=== PATIENT | female | born 1960 | race Caucasian/White ===

== ENCOUNTER 2019-09-01 00:23 | Emergency (ER) | payer BC, OTHER ==
--- NOTE | 2019-09-01 00:37 | EDM.PDOC ---
ED HPI GENERAL MEDICAL PROBLEM - General Stated Complaint: CHEST PAIN Time Seen by Provider: 09/01/19 00:35 Source of Information: Reports: Patient History Limitations: Reports: No Limitations - History of Present Illness INITIAL COMMENTS - FREE TEXT/NARRATIVE: 58 yo female with epigastric pain,radiation to the lower abdomen.Started at 1700 hrs and described as colicky. No bowel movement today. No fever or chest symptoms. Has ah.o Cholecystectomy and ANDRÉS. Otherwise healthy Upper abdomen Pain Score (Numeric/FACES): 0 - Related Data Allergies Allergy/AdvReac Type Severity Reaction Status Date / Time oxycodone [Oxycodone] Allergy Unknown Rash Verified 09/01/19 00:55 Home Meds: Home Meds Escitalopram Oxalate [Lexapro] 10 mg PO DAILY 09/01/19 [History] Losartan/Hydrochlorothiazide [Losartan-HCTZ 100-25 MG] 1 tab DAILY 09/01/19 [History] ED ROS GENERAL - Review of Systems Review Of Systems: Comprehensive ROS is negative, except as noted in HPI. ED EXAM, GI/ABD - Physical Exam Exam: See Below Exam Limited By: No Limitations General Appearance: Alert, WD/WN, Anxious Ears: Normal External Exam Nose: Normal Inspection Throat/Mouth: Normal Inspection Head: Atraumatic Respiratory/Chest: No Respiratory Distress Cardiovascular: Normal Peripheral Pulses GI/Abdominal Exam: Soft, Non-Tender, Distended. No: Guarding, Rigid, Rebound Course - Vital Signs Last Recorded V/S: Last Vital Signs Temp 98.1 F 09/01/19 02:20 Pulse 91 09/01/19 02:20 Resp 18 09/01/19 02:20 BP 149/78 H 09/01/19 02:20 Pulse Ox 99 09/01/19 02:20 - Orders/Labs/Meds Orders: Active Orders 24 hr Category Date Time Status EKG Documentation Completion [RC] ASDIRECTED Care 09/01/19 02:46 Active Abdomen Pelvis w wo Cont [CT] Stat Exams 09/01/19 00:34 Taken EKG 12 Lead [EK] Routine Ther 09/01/19 00:28 Ordered Labs: Laboratory Tests 09/01/19 09/01/19 09/01/19 Range/Units 00:35 00:35 00:35 WBC 14.4 H (4.5-12.0) X10-3/uL RBC 4.96 (3.23-5.20) x10(6)uL Hgb 14.8 (11.5-15.5) g/dL Hct 44.6 (30.0-51.3) % MCV 90.0 (80-96) fL MCH 30.0 (27.7-33.6) pg MCHC 33.3 (32.2-35.4) g/dL RDW 12.9 (11.5-15.5) % Plt Count 315 (125-369) X10(3)uL MPV 8.0 (7.4-10.4) fL Neut % (Auto) 80.6 (46-82) % Lymph % (Auto) 12.9 L (13-37) % [place] % (Auto) 5.5 (4-12) % Eos % (Auto) 0 L (1.0-5.0) % Baso % (Auto) 1 (0-2) % Neut # (Auto) 11.6 H (1.6-8.3) # Lymph # (Auto) 1.9 (0.6-5.0) # [place] # (Auto) 0.8 (0.0-1.3) # Eos # (Auto) 0.0 (0.0-0.8) # Baso # (Auto) 0.1 (0.0-0.2) # Sodium 138 (135-145) mmol/L Potassium 3.5 (3.5-5.3) mmol/L Chloride 99 L (100-110) mmol/L Carbon Dioxide 25 (21-32) mmol/L BUN 20 H (7-18) mg/dL Creatinine 1.1 H (0.55-1.02) mg/dL Est Cr Clr Drug Dosing TNP Estimated GFR (MDRD) 51 L (>60) BUN/Creatinine Ratio 18.2 (9-20) Glucose 170 H (80-116) mg/dL Calcium 10.1 (8.6-10.2) mg/dL Total Bilirubin 0.7 (0.1-1.3) mg/dL AST 31 H (5-25) IU/L ALT 54 H (12-36) U/L Alkaline Phosphatase 86 (56-112) IU/L Total Protein 7.8 (6.0-8.0) g/dL Albumin 4.0 (3.5-5.2) g/dL Globulin 3.8 g/dL Albumin/Globulin Ratio 1.1 Amylase 52 (25-115) U/L Lipase (73-393) U/L Urine Color (YELLOW) Urine Appearance (CLEAR) Urine pH (5.0-6.5) Ur Specific Declo (1.010-1.025) Urine Protein (NEGATIVE) mg/dL Urine Glucose (UA) (NORMAL) mg/dL Urine Ketones (NEGATIVE) mg/dL Urine Occult Blood (NEGATIVE) Urine Nitrite (NEGATIVE) Urine Bilirubin (NEGATIVE) Urine Urobilinogen (NEGATIVE) mg/dL Ur Leukocyte Esterase (NEGATIVE) Urine RBC (0-5) Urine WBC (0-5) Ur Squamous Epith Cells (NS,R,O) Urine Bacteria (NS) Urine Mucus (NS) 09/01/19 09/01/19 Range/Units 00:35 02:00 WBC (4.5-12.0) X10-3/uL RBC (3.23-5.20) x10(6)uL Hgb (11.5-15.5) g/dL Hct (30.0-51.3) % MCV (80-96) fL MCH (27.7-33.6) pg MCHC (32.2-35.4) g/dL RDW (11.5-15.5) % Plt Count (125-369) X10(3)uL MPV (7.4-10.4) fL Neut % (Auto) (46-82) % Lymph % (Auto) (13-37) % [place] % (Auto) (4-12) % Eos % (Auto) (1.0-5.0) % Baso % (Auto) (0-2) % Neut # (Auto) (1.6-8.3) # Lymph # (Auto) (0.6-5.0) # [place] # (Auto) (0.0-1.3) # Eos # (Auto) (0.0-0.8) # Baso # (Auto) (0.0-0.2) # Sodium (135-145) mmol/L Potassium (3.5-5.3) mmol/L Chloride (100-110) mmol/L Carbon Dioxide (21-32) mmol/L BUN (7-18) mg/dL Creatinine (0.55-1.02) mg/dL Est Cr Clr Drug Dosing Estimated GFR (MDRD) (>60) BUN/Creatinine Ratio (9-20) Glucose (80-116) mg/dL Calcium (8.6-10.2) mg/dL Total Bilirubin (0.1-1.3) mg/dL AST (5-25) IU/L ALT (12-36) U/L Alkaline Phosphatase (56-112) IU/L Total Protein (6.0-8.0) g/dL Albumin (3.5-5.2) g/dL Globulin g/dL Albumin/Globulin Ratio Amylase (25-115) U/L Lipase 106 (73-393) U/L Urine Color Yellow (YELLOW) Urine Appearance Slightly cloudy (CLEAR) Urine pH 8.0 H (5.0-6.5) Ur Specific Declo 1.010 (1.010-1.025) Urine Protein Negative (NEGATIVE) mg/dL Urine Glucose (UA) 250 H (NORMAL) mg/dL Urine Ketones 150 H (NEGATIVE) mg/dL Urine Occult Blood Negative (NEGATIVE) Urine Nitrite Negative (NEGATIVE) Urine Bilirubin Negative (NEGATIVE) Urine Urobilinogen Normal (NEGATIVE) mg/dL Ur Leukocyte Esterase Negative (NEGATIVE) Urine RBC 0-5 (0-5) Urine WBC 0-5 (0-5) Ur Squamous Epith Cells Moderate H (NS,R,O) Urine Bacteria Moderate H (NS) Urine Mucus Moderate H (NS) Meds: Medications Discontinued Medications Generic Name Dose Route Start Last Admin Trade Name Freq PRN Reason Stop Dose Admin Diatrizoate Meglum/Diatrizoate Sod 30 ml 09/01/19 00:48 09/01/19 01:52 Gastrografin 37% PO 09/01/19 00:49 30 ml . DIRECTED ONE Administration Iopamidol 100 ml 09/01/19 00:48 09/01/19 01:52 Isovue-370 (76%) IV 09/01/19 00:49 100 ml . DIRECTED ONE Administration Departure - Departure Time of Disposition: 02:30 Disposition: Home, Self-Care 01 Condition: Good Clinical Impression: Gastroenteritis, Abdominal pain, Sigmoid diverticulosis - Discharge Information Instructions: Abdominal Pain, Adult, [id number] Referrals: Lucinda Patterson STERILISATION TECHNICIAN [Primary Care Provider] - Forms: ED Department Discharge Additional Instructions: Activity as tolerated. Increase fluids. Follow up with regular MD as needed. Sepsis Event Note (ED) - Focused Exam Vital Signs: Vital Signs Temp Pulse Resp BP Pulse Ox 09/01/19 02:20 98.1 F 91 18 149/78 H 99 09/01/19 00:23 97.3 F 93 24 H 107/92 H 100 - Problem List & Annotations (1) Abdominal pain SNOMED Code(s): 05341355 Code(s): R10.9 - UNSPECIFIED ABDOMINAL PAIN Status: Acute Qualifiers: Abdominal location: generalized Qualified Code(s): R10.84 - Generalized abdominal pain - Problem List Review Problem List Initiated/Reviewed/Updated: Yes - My Orders Last 24 Hours: My Active Orders 09/01/19 00:28 EKG 12 Lead [EK] Routine 09/01/19 00:34 Abdomen Pelvis w wo Cont [CT] Stat 09/01/19 02:46 EKG Documentation Completion [RC] ASDIRECTED - Assessment/Plan Last 24 Hours: My Active Orders 09/01/19 00:28 EKG 12 Lead [EK] Routine 09/01/19 00:34 Abdomen Pelvis w wo Cont [CT] Stat 09/01/19 02:46 EKG Documentation Completion [RC] ASDIRECTED Plan: CT showed fluid in her colon,suggestive of a diarrheal disease. She felt much better after coming to th [facility]. I will discharge her ,to follow up PRN.
[2019-09-01] MEDS ORDERED: Diatrizoate Meglumine/Diatrizoate Sodium 37% 30 ML Bottle PO ONE (00:48)
[2019-09-01] MEDS ORDERED: Iopamidol 755 Mg/ML 100 ML Bottle IV ONE (00:48)
[2019-09-01 02:50] VITALS: BP 149/78; PULSE 91
== END 2019-09-01 02:45 | disposition home or self-care (01) ==
LOC: FB.ED 00:23
DX: K57.30 Diverticulosis of large intestine without perforation or abscess without bleeding (principal); K52.9 Noninfective gastroenteritis and colitis, unspecified; Z88.5 Allergy status to narcotic agent
CPT/HCPCS: 36415; 74178; 80053; 81001; 82150; 83690; 85025; 93005; 99284; Q9963; Q9967; 99283